=== PATIENT | female | born 1945 | race Caucasian/White ===

== ENCOUNTER → 2018-01-07 09:43 | Outpatient (REF) | payer MEDICARE, BC, SELFPAY ==
[2018-01-07 19:14] LABS: Anion Gap 10.8 mmol/L (3-11); BUN 12 mg/dL (7-18); CO2 27.2 mmol/L (21.0-32.0); Calcium 9.1 mg/dL (8.5-10.1); Chloride 103 mmol/L (98-107); Glucose 89 mg/dL (70-100); Potassium 4.3 mmol/L (3.5-5.1); Sodium 141 mmol/L (136-145)
== END ==
LOC: NCHCN 09:43
PROVIDERS: PCP Nurse Practitioner Adult Health; Visit Provider Physician Assistant Medical
DX: R63.4 Abnormal weight loss (principal); K52.9 Noninfective gastroenteritis and colitis, unspecified
CPT/HCPCS: 80048

== ENCOUNTER → 2018-01-12 00:57 | Outpatient (CLI) | payer MEDICARE, BC, SELFPAY ==
--- NOTE | 2018-01-12 12:07 | DI.RPTCT_ITS ---
SYMPTOM/DIAGNOSIS: ABNORMAL WEIGHT LOSS, DIARRHEA ABDOMINAL AND PELVIC CT : 01/12 CT examination of the abdomen and pelvis was performed with a bolus infusion of 100 cc Omnipaque 350 and ingestion of dilute Barium. Images obtained through the lung bases show diffuse central lobular emphysema. Abdominal aorta shows marked calcification. There is occlusion of the left common iliac artery. There is occlusion of the right common iliac artery as well with patent internal iliac artery. There is reconstitution of the superficial femoral arteries bilaterally from collateral circulation. Renal arteries appear intact bilaterally and celiac trunk and superior and inferior mesenteric arteries appear patent. Liver, spleen are normal in appearance. Pancreas is unremarkable. There appears to be cholelithiasis. No biliary dilatation seen. Adrenals and kidneys are unremarkable. No urinary tract obstruction or calcification seen. No abdominal or pelvic adenopathy seen. There is marked colonic diverticulosis without focal evidence of acute diverticulitis. Appendix appears normal. Nonspecific mild small bowel thickening noted in the left upper quadrant and duodenal wall appears somewhat thickened as well. No significant abdominal wall hernia seen. 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 2. Mild dilatation and bowel wall thickening of jejunum and duodenum, question enteritis. Please correlate clinically.
[2018-01-12] MEDS: Omnipaque 350 MG/ML 100 ML BTL IJ (12:14)
[2018-01-12] MEDS: Omnipaque 350 MG/ML 50 ML BTL PO (12:23)
[2018-01-12] MEDS: Breeza Beverage 473 ML BTL PO ×2 (12:23→12:24)
== END ==
PROVIDERS: PCP Physician Assistant Medical; Visit Provider Internal Medicine Gastroenterology
DX: R63.4 Abnormal weight loss (principal); R19.7 Diarrhea, unspecified; K57.30 Diverticulosis of large intestine without perforation or abscess without bleeding; I74.5 Embolism and thrombosis of iliac artery
CPT/HCPCS: 74177; Q9967; J3490

== ENCOUNTER 2018-02-22 11:29 | Outpatient (REF) | payer MEDICARE, BC, SELFPAY | END 2018-02-22 11:49 | LOC: LBN 11:29 | PROVIDERS: PCP Physician Assistant Medical; Visit Provider Internal Medicine Gastroenterology | DX: K52.9 Noninfective gastroenteritis and colitis, unspecified (principal) | CPT/HCPCS: 82710 ==

== ENCOUNTER 2018-07-06 10:29 | Day surgery (SDC) | payer MEDICARE, BC, SELFPAY ==
[2018-07-06 10:46] VITALS: BP 138/80; PULSE 82; RESP 18; TEMP 36.6; O2SAT 97
--- NOTE | 2018-07-06 11:10 | ED.GENADUL_ITS ---
Discharge Plan Disposition Patient Disposition: OTHER Condition: Stable Discharge Details Chief Complaint: Orthopedic Clinical Impression: Colles' fracture of left radius Attending Provider: Alex Mendiola Primary Care Provider: Conor Campos ED Provider: Raquel Garza Medical Decision Making 73-year-old female who presents with left wrist pain after slip and fall on ice onto outstretched hand. There is a dorsal deformity noted overlying radius of left wrist, bony deformity likely consistent with dorsal displacement and fracture of radius. Neurovascularly intact. Patient drove herself here and states she cannot get a ride home yet. Will give a dose of Motrin, Tylenol and sent for left wrist x-ray. 1210 --x-ray notes distal radius fracture consistent with Colles' fracture. X-ray results discussed with Dr. Mendiola and he will take patient to day surgery for local block and closed reduction. Will place splint. Medical Records Medical records reviewed: Yes I reviewed the patient's medical records. Imaging Data Radiologic Study: Radiologist's impression: LEFT WRIST: There is a comminuted, intra-articular fracture of the distal radius. A component of the fracture extends transversely through the distal radial metaphysis. There is dorsal angulation. There is an intra-articular component seen dorsally which shows some separation at the articular surface. The ulnar styloid is fractured. The carpal region shows degenerative changes, greatest of the first carpal metacarpal joint. IMPRESSION: Comminuted, intra-articular fracture of the distal radius and ulnar styloid fracture. HPI General Mode of arrival: ambulatory . Date/Time Provider Initiated Documentation: 07/06/18 11:03 . Limitations to Documentation: no limitations . Information obtained by: patient . HPI Narrative: Patient is a 73-year-old female presents with left wrist pain after slip and fall on ice onto left outstretched hand. She states she thinks she hit her hip as well but denies any hip pain. She denies head injury, shoulder or elbow pain. Patient has not taken anything for pain. Patient states she lives alone, her 1 year ago. Patient is concerned about getting her groceries in the house. Patient states she is right-handed. Related Data Home Medications Medication Instructions Recorded Confirmed aspirin [Aspirin Low Dose] 81 mg PO DAILY 07/06/18 07/06/18 diazepam 2.5 mg PO QHS PRN 07/06/18 07/06/18 diazepam [Valium] 2.5 mg PO HS PRN 07/06/18 07/06/18 escitalopram oxalate 5 mg PO DAILY 07/06/18 07/06/18 lisinopril 2.5 mg PO DAILY 07/06/18 07/06/18 Allergies Allergy/AdvReac Type Severity Reaction Status Date / Time tetracycline Allergy Unverified 07/06/18 13:10 General Stated Complaint: Orthopedic SANDRA: 3 Review of Systems Review of Systems All systems reviewed & are unremarkable except as noted in HPI and below PFSH Medical History Anxiety (Chronic) Depression (Chronic) HTN (hypertension) (Chronic) Surgical History History of hysterectomy (Chronic) Social History Smoking/Tobacco Use Status: Current every day alcohol intake: never substance use type: does not use Exam Const General: cooperative, healthy appearing and no acute distress HENMT Head: normal to inspection Mouth: oral mucosae normal Eyes General: appearance normal, both eyes and all related structures Neck Neck: normal visual inspection Resp Effort & Inspection: normal respiratory effort and able to speak in complete sentences Cardio Rate: regular rate Skin General skin exam: no rashes or lesions noted Neuro General: alert, awake and oriented x3 Motor: muscle tone normal throughout Extrem Left upper extremity: normal capillary refill, wrist Details: tenderness Location: of the distal radius, swelling Location: of the dorsal wrist, abnormal ROM Details: held in an abnormal fashion Details: in ADduction, pain with active ROM and pain with passive ROM, deformity (dorsal, c/w colle's fracture overlying radius), normal vascular exam, radial pulse present and ulnar pulse present and hand Details: normal to inspection and no swelling; no tenderness and no ecchymosis Psych Appearance: grossly normal Affect: normal affect Course Vital Signs Temperature 97.9 F 07/06/18 10:46 Pulse 82 07/06/18 10:46 Respiratory Rate 18 07/06/18 10:46 Blood Pressure 138/80 07/06/18 10:46 Pulse Oximetry 97 07/06/18 10:46 Temperature 97.9 F 07/06/18 10:46 Temperature Source Temporal Artery Scan 07/06/18 10:46 Pulse 82 07/06/18 10:46 Respiratory Rate 18 07/06/18 10:46 Respiratory Effort Non-Labored 07/06/18 10:46 Blood Pressure 138/80 07/06/18 10:46 Blood Pressure Position Sitting 07/06/18 10:46 Pulse Oximetry 97 07/06/18 10:46 Pain Level 9 07/06/18 10:46
[2018-07-06] MEDS: Acetaminophen 325 MG TAB 650 MG PO (11:42)
[2018-07-06] MEDS: Ibuprofen 600 MG TAB PO (11:43)
--- NOTE | 2018-07-06 12:01 | DI.RAD_ITS ---
SYMPTOM/DIAGNOSIS: S/P FALL ON CE, PAIN, ? FX LEFT WRIST: There is a comminuted, intra-articular fracture of the distal radius. A component of the fracture extends transversely through the distal radial metaphysis. There is dorsal angulation. There is an intra-articular component seen dorsally which shows some separation at the articular surface. The ulnar styloid is fractured. The carpal region shows degenerative changes, greatest of the first carpal metacarpal joint. IMPRESSION: Comminuted, intra-articular fracture of the distal radius and ulnar styloid fracture.
[2018-07-06 13:15] VITALS: BP 138/80; PULSE 82; RESP 18; TEMP 36.6; O2SAT 97
[2018-07-06 13:17] VITALS: BP 117/80; PULSE 72; RESP 18; TEMP 36.3; O2SAT 96
--- NOTE | 2018-07-06 13:21 | DI.RAD_ITS ---
SYMPTOMS/DIAGNOSIS: LEFT WRIST FRACTURE C-ARM FLUOROSCOPY OF THE LEFT WRIST: Fluoroscopy Time: 0.05 sec Fluoroscopy was provided for Dr. Mendiola. Hard copy images show improvement in the alignment of the comminuted intraarticular fracture of the distal radius. A cast has been placed.
--- NOTE | 2018-07-06 13:48 | PDOC.ERCMPRO ---
Care Management Progress Note 07/05-Met with Cheri. [place] [address] Cheri stated that she fell today, in the dogs area, and has a fractured left wrist. Cheri stated that she drove herself to the hospital. She is worried about her dogs food. Cheri called the feed exchange and they are bringing a bag of dog food plus a case of canned dog food to the hospital and putting it in her car. Discussed with Cheri how she was going to get the dogs food in the house. Cheri called her friend Lashonda Avalos who will make sure that someone will be at the house when she gets home to bring in dog food. Cheri does have a son that lives in [facility] but she does not want to tell them till she gets home. Dr. Mendiola came in and met with Cheri. He is going to set and cast her arm. Dr. Mendiola has told Cheri that she can drive home. Cheri is a little sad today. It will be a year on July 13 that her has past. Discussed updating her demographics as her is still listed. Cheri would like to add her son Jamil Solares, [facility], [phone]. Called [employer] and spoke with Jan who will update demographics. Cheri has this CM's contact information if further assistance is needed.
[2018-07-06] MEDS: Bupivacaine 0.5% Pres-Free 30 ML VIAL (14:16)
--- NOTE | 2018-07-06 14:38 | W.PM.DSUDISC ---
Discharge Plan Disposition Patient Disposition: HOME Condition: Stable Discharge Details Chief Complaint: Orthopedic Clinical Impression: Colles' fracture of left radius Reason For Visit: closed reduction fx distal radius and ulna Attending Provider: Alex Mendiola Primary Care Provider: Conor Campos ED Provider: Raquel Garza Home Meds and New Rx's Prescriptions: New hydrocodone-acetaminophen 5-325 mg tablet 1 tab PO Q6H PRN (Reason: pain) Qty: 14 RF: 0 Continued venlafaxine [Effexor XR] 37.5 mg Capsule,Extended Release 24hr 37.5 mg PO DAILY RF: 0 aspirin [Aspir-81] 81 mg Tablet,Delayed Release (Dr/Ec) 81 mg PO DAILY RF: 0 diazepam [Valium] 2 mg Tablet 2 mg PO HS RF: 0 lisinopril 5 mg Tablet 5 mg PO DAILY RF: 0 Probiotic 3 billion cell Capsule 3,000 mmu cells PO DAILY RF: 0 Vassar-3 Fish Oil 300-1,000 mg Capsule 1,000 mg PO DAILY RF: 0 Discharge Instructions Additional Instructions: Cast care instruction sheet. Elevate L hand above heart level as much as possible for next 48 hours. Bend and straighten fingers and thumb of L hand 10 times/hour when awake. Use tylenol or ibuprofen for mild pain. Use the hydrocodone for pain that is not relieved by tylenol or ibuprofen. Follow up in 's office in one week. Referrals: Alex Mendiola MD [ [facility] STAFF PHYSICIAN] - (f/u in one week) Equipment/Supplies: Cast Activity:: Activity as Tolerated Remove Dressings/Wound Care:: Do Not Remove Shower/Bathe:: Cover Diet:: As Tolerated Discharge Orders Discharge Orders: Discharge Order (Routine); Ordered 07/06/18 Ordered By: Alex Mendiola
--- NOTE | 2018-07-06 14:41 | PDOC.DSDIS_ITS ---
Discharge Plan Disposition Patient Disposition: HOME Condition: Stable Discharge Details Chief Complaint: Orthopedic Clinical Impression: Colles' fracture of left radius Reason For Visit: closed reduction fx distal radius and ulna Attending Provider: Alex Mendiola Primary Care Provider: Conor Campos ED Provider: Raquel Garza Home Meds and New Rx's Prescriptions: New hydrocodone-acetaminophen 5-325 mg tablet 1 tab PO Q6H PRN (Reason: pain) Qty: 14 RF: 0 Continued venlafaxine [Effexor XR] 37.5 mg Capsule,Extended Release 24hr 37.5 mg PO DAILY RF: 0 aspirin [Aspir-81] 81 mg Tablet,Delayed Release (Dr/Ec) 81 mg PO DAILY RF: 0 diazepam [Valium] 2 mg Tablet 2 mg PO HS RF: 0 lisinopril 5 mg Tablet 5 mg PO DAILY RF: 0 Probiotic 3 billion cell Capsule 3,000 mmu cells PO DAILY RF: 0 Marquez-3 Fish Oil 300-1,000 mg Capsule 1,000 mg PO DAILY RF: 0 Discharge Instructions Additional Instructions: Cast care instruction sheet. Elevate L hand above heart level as much as possible for next 48 hours. Bend and straighten fingers and thumb of L hand 10 times/hour when awake. Use tylenol or ibuprofen for mild pain. Use the hydrocodone for pain that is not relieved by tylenol or ibuprofen. Follow up in 's office in one week. Referrals: Alex Mendiola MD [ [facility] STAFF PHYSICIAN] - (f/u in one week) Equipment/Supplies: Cast Activity:: Activity as Tolerated Remove Dressings/Wound Care:: Do Not Remove Shower/Bathe:: Cover Diet:: As Tolerated Discharge Orders Discharge Orders: Discharge Order (Routine); Ordered 07/06/18 Ordered By: Alex Mendiola
--- NOTE | 2018-07-06 19:50 | ROE_ITS ---
DATE OF PROCEDURE: July 06, 2018 PREOPERATIVE DIAGNOSIS: Displaced fracture distal radius and ulnar styloid on the left. POSTOPERATIVE DIAGNOSIS: Same. PROCEDURE: Closed reduction of a displaced fracture of the distal radius and ulnar styloid on the le ft, application of short arm fiberglass cast. SURGEON: Alex Mendiola M.D. ANESTHESIA: IV regional - single blood pressure cuff technique performed by me, supplemented by a he matoma block. INDICATIONS: This is a 73-year-old white female who slipped while walking her dog earlier today. Luis Alfredo serrano presented to the Emergency Room with a visible deformity, classic silver fork of the distal radius. She was neurovascularly intact in the Emergency Room. I was consulted for further care. She had o nly a mild amount of radial shortening on the AP view, but had significant apex dorsal angulation of the distal radius on the lateral view measuring at least 40 degrees. Closed manipulated reduction wa s recommended as optimum treatment to correct the dorsal tilt and help restore radial length to the f racture. The risks and complications of the procedure were explained to the patient in detail preope ratively. PROCEDURE: The patient was taken to the Operating Room on 07/06/18. An IV was started in the dorsum o f her left hand. A proximal tourniquet was applied. The left upper extremity was exsanguinated by zach levyunior for two minutes and then the proximal tourniquet was inflated to 225 mmHg. I then injected through the IV into her left upper extremity 30 cc of 0.5% Xylocaine solution. The IV was then remov ed. I then injected 10 cc of 0.5% Marcaine with epinephrine solution into the fracture site to perfo rm a hematoma block. The puncture wounds were dressed with Band-Aids. The left hand was then suspen ded by finger traps from an IV pole. Countertraction of 10 pounds was applied. I then performed a c losed manipulated reduction of the distal radial fracture. The reduction was checked using the mini C-arm image intensifier. Radial length was restored on the AP view to essentially anatomic and the d orsal tilt of the radius was corrected to 0 degrees on the lateral view. I then captured the reducti on with a well-molded short arm fiberglass cast. The left arm was then taken out of finger traps and the traction weights were removed. Final images in the cast were then performed with the mini C-arm . These confirmed that a near anatomic reduction had been obtained. The patient tolerated the proce dure well. Her IV regional anesthesia was reversed without complications. She was discharged to the Day Surgery Unit in good condition. The patient was discharged home from the Day Surgery Unit with instructions to elevate her left hand above heart level as much as possible for the next 48 hours. She is encouraged to bend and straighte n her fingers and thumb of her left hand 10 times an hour while awake to prevent stiffness and swelli ng. She was given a cast sheet with instructions on care and complications of the cast. She underst ands that if she has symptoms of pain and swelling the cast will need to be split. She can call the office tomorrow or the day after with any problems. She is given a prescription for pain of hydrocod one/APAP 5 mg/325 mg, 1 tablet every 6 hours as needed for pain that is not relieved by Tylenol or ib uprofen. She will follow up in my office in one week for x-rays to confirm that the reduction is titi ng maintained.
== END 2018-07-06 15:20 | disposition home or self-care (01) ==
LOC: ER 12:44 → DSU 12:55 → SUR 12:57
PROVIDERS: Emergency Provider Physician Assistant; PCP Physician Assistant Medical; Visit Provider Orthopaedic Surgery
PROC: (CPT 25605; principal; 2018-07-06 14:00)
DX: S52.592A Other fractures of lower end of left radius, initial encounter for closed fracture (principal); S52.612A Displaced fracture of left ulna styloid process, initial encounter for closed fracture; W00.0XXA Fall on same level due to ice and snow, initial encounter; Y93.K1 Activity, walking an animal
CPT/HCPCS: 25605; 99285; 73100; 73110; 99284

== ENCOUNTER 2018-07-14 12:16 | Outpatient (CLI) | payer MEDICARE, BC, SELFPAY ==
--- NOTE | 2018-07-14 11:51 | DI.RAD_ITS ---
SYMPTOMS/DIAGNOSIS: FOLLOW UP LEFT WRIST: Two views were obtained and show previously described fracture of the distal radius with no gross interval change in alignment in comparison with images obtained 07/06/18. Ulnar styloid fracture again noted as well.
== END 2018-07-14 12:36 ==
PROVIDERS: PCP Physician Assistant Medical; Referring Provider Physician Assistant Medical; Visit Provider Orthopaedic Surgery
DX: S52.592D Other fractures of lower end of left radius, subsequent encounter for closed fracture with routine healing (principal); S52.612D Displaced fracture of left ulna styloid process, subsequent encounter for closed fracture with routine healing; X58.XXXD Exposure to other specified factors, subsequent encounter; I10 Essential (primary) hypertension
CPT/HCPCS: 73100

== ENCOUNTER 2018-07-20 11:07 | Outpatient (CLI) | payer MEDICARE, BC, SELFPAY ==
--- NOTE | 2018-07-20 11:03 | DI.RAD_ITS ---
SYMPTOM/DIAGNOSIS: F/U CLOSED REDUCTION LEFT WRIST: Two views. Comparison is made with 07/14/18. The patient's wrist is in a cast which does obscure the underlying bony detail. There has been no change in alignment of the fracture of the distal left radius. The ulnar styloid process fracture is also visualized and is unchanged.
== END 2018-07-20 11:27 ==
PROVIDERS: PCP Physician Assistant Medical; Referring Provider Physician Assistant Medical; Visit Provider Orthopaedic Surgery
DX: S52.612D Displaced fracture of left ulna styloid process, subsequent encounter for closed fracture with routine healing (principal); I10 Essential (primary) hypertension; X58.XXXD Exposure to other specified factors, subsequent encounter
CPT/HCPCS: 73100

== ENCOUNTER 2018-08-10 10:04 | Outpatient (CLI) | payer MEDICARE, BC, SELFPAY ==
--- NOTE | 2018-08-10 09:53 | DI.RAD_ITS ---
SYMPTOMS/DIAGNOSIS: F/U FX LEFT WRIST: AP and lateral images obtained through fiberglass demonstrate no interval change in the status of the distal radial and ulnar styloid fracture.
== END 2018-08-10 10:24 ==
PROVIDERS: PCP Physician Assistant Medical; Referring Provider Physician Assistant Medical; Visit Provider Orthopaedic Surgery
DX: S52.592D Other fractures of lower end of left radius, subsequent encounter for closed fracture with routine healing (principal); S52.612D Displaced fracture of left ulna styloid process, subsequent encounter for closed fracture with routine healing; I10 Essential (primary) hypertension; W19.XXXD Unspecified fall, subsequent encounter
CPT/HCPCS: 73100; L3908

== ENCOUNTER 2018-12-05 14:16 | Outpatient (REF) | payer MEDICARE, BC, SELFPAY ==
[2018-12-05 22:48] LABS: Anion Gap 12.1 mmol/L (3-11); BUN 11 mg/dL (7-18); CO2 24.9 mmol/L (21.0-32.0); CREATININE 0.64 mg/dL (0.55-1.02); Calcium 9.7 mg/dL (8.5-10.1); Chloride 105 mmol/L (98-107); Glucose 89 mg/dL (70-100); Potassium 4.5 mmol/L (3.5-5.1); Sodium 142 mmol/L (136-145)
== END 2018-12-05 14:36 ==
LOC: NCHCN 14:16
PROVIDERS: PCP Physician Assistant Medical; Visit Provider Physician Assistant Medical
DX: I10 Essential (primary) hypertension (principal)
CPT/HCPCS: 80048

== ENCOUNTER 2019-03-20 01:11 | Outpatient (CLI) | payer MEDICARE, BC, SELFPAY ==
--- NOTE | 2019-03-20 10:52 | DI.RAD_ITS ---
EXAM: XR CERVICAL SPINE COMP 4-5V INDICATION: NECK PAIN M54.2. COMPARISON: No exams were available for comparison TECHNIQUE: 2D digital imaging was performed. FINDINGS: The vertebral bodies are intact. The disc spaces are intact. No evidence of spinal stenosis. There a re moderate degenerative changes involving the facet joints. The posterior elements are well maintain ed and the odontoid is closely applied to the anterior arch of C1. Prevertebral soft tissues are unr emarkable. The patient is edentulous. IMPRESSION: Mild degenerative changes involving the cervical spine are noted. There is no evidence a fracture or subluxation.
== END 2019-03-20 01:31 ==
PROVIDERS: PCP Physician Assistant Medical; Visit Provider Physician Assistant Medical
DX: M54.2 Cervicalgia (principal); M47.812 Spondylosis without myelopathy or radiculopathy, cervical region
CPT/HCPCS: 72050

== ENCOUNTER 2019-12-15 21:54 | Outpatient (REF) | payer MEDICARE, BC, SELFPAY ==
[2019-12-15 20:24] LABS: Abs Immature Grans 0.07 k/cumm (0.0-0.09); Absolute Basophil Count 0.02 k/cumm (0.0-0.2); Absolute Eosinophil Count 0.03 k/cumm (0.0-0.7); Absolute Lymphocyte Count 2.23 k/cumm (1.2-3.4); Absolute Monocyte Count 0.53 k/cumm (0.11-0.7); Absolute Neutrophil Count 3.48 k/cumm (1.2-6.7); Basophils % 0.3; Eosinophils % 0.5; HGB 14.7 g/dL (12.0-15.5); Immature Grans % 1.1 %; Lymphocytes % 35.1; Mean Corp. HGB Concentration 33.4 g/dL (32.0-36.0); Mean Corpuscular Hemoglobin 31.5 pg (27.0-33.0); Mean Corpuscular Volume 94.4 fL (80-95); Monocytes % 8.3; Neutrophils % 54.7; Platelet Count 246 x1000/uL (130-400); RBC 4.66 m/cumm (4.00-5.20); RBC Distribution Width 14.6 % (11.7-14.6); White Blood Cell Count 6.36 k/cumm (4.4-10.8)
[2019-12-15 20:37] LABS: ALT 17 U/L (14-59); AST 16 U/L (15-37); Albumin 3.7 g/dL (3.4-5.0); Alkaline Phosphatase 89 U/L (46-116); Anion Gap 8.9 mmol/L (3-11); BUN 17 mg/dL (7-18); CO2 26.1 mmol/L (21.0-32.0); CREATININE 0.64 mg/dL (0.55-1.02); Calcium 9.4 mg/dL (8.5-10.1); Chloride 106 mmol/L (98-107); Glucose 64 mg/dL (74-106); Potassium 4.2 mmol/L (3.5-5.1); Sodium 141 mmol/L (136-145); Total Protein 6.9 g/dL (6.4-8.2)
[2019-12-15 21:02] LABS: Bilirubin, Total 0.3 mg/dL (0.2-1.0)
== END 2019-12-15 22:14 ==
LOC: NCHCN 21:54
PROVIDERS: PCP Physician Assistant Medical; Visit Provider Physician Assistant Medical
DX: I10 Essential (primary) hypertension (principal)
CPT/HCPCS: 80053; 85025

== ENCOUNTER 2020-12-23 14:36 | Outpatient (REF) | payer MEDICARE, BC, SELFPAY ==
[2020-12-23 19:31] LABS: Absolute Basophil Count 0.06 10^3/uL (0.0-0.2); Absolute Eosinophil Count 0.07 10^3/uL (0.0-0.7); Absolute Lymphocyte Count 3.31 10^3/uL (1.2-3.4); Absolute Neutrophil Count 4.01 10^3/uL (1.2-6.7); Basophils % 0.7; Eosinophils % 0.8; HCT 46.2 % (36.0-46.0); HGB 15.3 g/dL (11.2-15.7); Immature Grans % 1.2; Lymphocytes % 40.1; MCH 30.9 pg (27.0-33.0); MCHC 33.1 % (32.0-36.0); MCV 93.3 fL (80-95); MPV 9.6 fL (8.0-11.0); Monocytes % 8.5; Neutrophils % 48.7; Nucleated RBC 0 %; Platelet Count 243 10^3/uL (130-400); RBC 4.95 10^6/uL (3.93-5.22); RDW 14.1 % (11.7-14.6); RDW-SD 48.4 fL; WBC 8.25 10^3/uL (4.4-10.8)
[2020-12-23 19:32] LABS: ALT 17 U/L (14-59); AST 16 U/L (15-37); Albumin 3.6 g/dL (3.4-5.0); Alkaline Phosphatase 82 U/L (46-116); Anion Gap 9.8 mmol/L (3-11); BUN 15 mg/dL (7-18); Bilirubin, Total 0.3 mg/dL (0.2-1.0); CO2 25.2 mmol/L (21.0-32.0); CREATININE 0.7 mg/dL (0.55-1.02); Calcium 9.4 mg/dL (8.5-10.1); Chloride 107 mmol/L (98-107); Glucose 99 mg/dL (74-106); Potassium 3.9 mmol/L (3.5-5.1); Sodium 142 mmol/L (136-145); Total Protein 6.7 g/dL (6.4-8.2)
== END 2020-12-23 14:37 | disposition home or self-care (01) ==
LOC: NCHCN 14:36
PROVIDERS: PCP Physician Assistant Medical; Visit Provider Physician Assistant Medical
DX: R42 Dizziness and giddiness (principal)
CPT/HCPCS: 80053; 85025

== ENCOUNTER 2022-09-11 12:07 | Outpatient (REF) | payer MEDICARE, SELFPAY ==
[2022-09-11 15:22] LABS: Abs Immature Grans 0.05 10^3/uL (0.0-0.06); Absolute Basophil Count 0.06 10^3/uL (0.0-0.2); Absolute Eosinophil Count 0.04 10^3/uL (0.0-0.7); Absolute Lymphocyte Count 2.83 10^3/uL (1.2-3.4); Absolute Monocyte Count 0.53 10^3/uL (0.1-0.8); Absolute Neutrophil Count 3.08 10^3/uL (1.2-6.7); Basophils % 0.9; Eosinophils % 0.6; HCT 44.4 % (36.0-46.0); Immature Grans % 0.8; Lymphocytes % 42.9; MCH 31.4 pg (27.0-33.0); MCHC 33.8 % (32.0-36.0); MCV 93 fL (80-95); MPV 9.5 fL (8.0-11.0); Neutrophils % 46.8; Platelet Count 220 10^3/uL (130-400); RBC 4.77 10^6/uL (3.93-5.22); RDW 13.9 % (11.7-14.6); RDW-SD 48.2 fL; WBC 6.59 10^3/uL (4.4-10.8)
[2022-09-11 15:52] LABS: ALT 18 U/L (14-59); AST 18 U/L (15-37); Albumin 3.6 g/dL (3.4-5.0); Alkaline Phosphatase 91 U/L (46-116); Anion Gap 7.1 mmol/L (3-11); BUN 16 mg/dL (7-18); Bilirubin, Total 0.3 mg/dL (0.2-1.0); CO2 26.9 mmol/L (21.0-32.0); CREATININE 0.8 mg/dL (0.55-1.02); Calcium 9.8 mg/dL (8.5-10.1); Chloride 108 mmol/L (98-107); Estimated GFR 75.37 (mL/min/1.73m2); Glucose 99 mg/dL (74-106); Potassium 4.1 mmol/L (3.5-5.1); Sodium 142 mmol/L (136-145); Total Protein 7.5 g/dL (6.4-8.2)
== END 2022-09-11 12:08 | disposition home or self-care (01) ==
LOC: NCHCN 12:07
PROVIDERS: PCP Physician Assistant Medical; Visit Provider Physician Assistant Medical
DX: R42 Dizziness and giddiness (principal)
CPT/HCPCS: 80053; 85025

== ENCOUNTER → 2023-08-31 14:31 | Outpatient (CLI) | payer MEDICARE, SELFPAY ==
--- NOTE | 2023-08-31 | DI.RAD_ITS ---
Exam(s) XR LUMBAR SPINE COMPLETE EXAM: XR LUMBAR SPINE COMPLETE CLINICAL HISTORY: M54.50 Low back pain,unspecified. TECHNIQUE: 2D digital imaging was performed. COMPARISON: CT ABD PELVIS WITH CONTRAST from 11/06/2009 FINDINGS: Five views. There is age-related osteopenia. No evidence of compression fracture nor prominent listhesis. Mild scoliosis noted convex left. There is mild disc space narrowing at L3-4 level. Other disc spaces ex hibit normal height. There is facet arthropathy at the lower 2 levels. The sacroiliac joints appear unremarkable. No osseous lesions. IMPRESSION: Mild disc space narrowing at L3-4 level. Facet arthropathy, most evident at L5-S1. DATA REPOSITORY: RADIATION DOSE DELIVERED:
== END ==
PROVIDERS: PCP Physician Assistant Medical; Visit Provider Physician Assistant Medical
DX: M54.59 Other low back pain (principal); M51.37 Other intervertebral disc degeneration, lumbosacral region; M47.817 Spondylosis without myelopathy or radiculopathy, lumbosacral region; M85.88 Other specified disorders of bone density and structure, other site
CPT/HCPCS: 72110

== ENCOUNTER 2023-08-31 15:42 | Outpatient (REF) | payer MEDICARE, SELFPAY | END 2023-08-31 15:43 | disposition home or self-care (01) | LOC: NCHCN 15:42 | PROVIDERS: PCP Physician Assistant Medical; Visit Provider Physician Assistant Medical | DX: R30.0 Dysuria (principal) | CPT/HCPCS: 87077; 87086; 87186 ==

== ENCOUNTER 2024-02-08 01:05 | Outpatient (CLI) | payer MEDICARE, SELFPAY ==
--- NOTE | 2024-02-08 14:59 | DI.US_ITS ---
Exam(s) US CAROTID EXAM: US CAROTID CLINICAL HISTORY: Lt carotid artery occlusion and stenosis, I65.22. TECHNIQUE: Ultrasound carotids performed using grayscale, color-flow, and spectral Doppler imaging. COMPARISON: No exams were available for comparison FINDINGS: RIGHT CAROTID ARTERY: Plaque: Minimal calcific plaque at the proximal internal and external carotid artery as well as commo n carotid bulb.. Velocity elevation: None. LEFT CAROTID ARTERY: Plaque: Moderate focus of calcific plaque at the proximal internal carotid artery. Mild plaque at th e common carotid bulb and proximal external carotid artery.. Velocity elevation: None. VERTEBRAL ARTERIES: Antegrade flow. Measurements: R Bulb: 77.5cm/s PS / 29.6cm/s ED R CCA: 87.8cm/s PS / 18cm/s ED R ECA: 76.2cm/s PS / 18cm/s ED R ICA Prox: 110.7cm/s PS / 35.9cm/s ED R ICA Mid: 103.9cm/s PS / 38.1cm/s ED R ICA Distal: 65.5cm/s PS /27.2cm/s ED R Vert: 62.4cm/s PS / 25.6cm/s ED R SVR: 1.3 R DVR: 2 L Bulb: 78.5cm/s PS / 29.7cm/s ED L CCA: 63cm/s PS / 24.9cm/s ED L ECA: 110.8cm/s PS / 14.4cm/s ED L ICA Prox: 158.4cm/s PS / 67.1cm/s ED L ICA Mid: 123.6cm/s PS / 41.1cm/s ED L ICA Distal: 85.9cm/s PS / 31.4cm/s ED L Vert: 34.7cm/s PS / 14cm/s ED L SVR: 2.5 L DVR: 2.7 IMPRESSION: Approximate 50 to 69 percent stenosis of proximal left internal carotid artery. No significant right internal carotid artery stenosis. Criteria for Carotid Stenosis: Normal: ICA PSV <125 cm/s no plaque or intimal thickening is visible. <50% stenosis: ICA PSV <125 cm/s and plaque or intimal thickening is visible. 50-69% stenosis: ICA PSV is 125-250 cm/s and plaque is visible. >70% stenosis to near occlusion: ICA PSV >250 cm/s with visible plaque and luminal narrowing. DATA REPOSITORY:
== END 2024-02-08 01:25 ==
LOC: DI 01:05
PROVIDERS: PCP Physician Assistant Medical; Visit Provider Physician Assistant Medical
DX: I65.22 Occlusion and stenosis of left carotid artery (principal)
CPT/HCPCS: 93880

== ENCOUNTER 2024-12-27 15:19 | Outpatient (REF) | payer MEDICARE, SELFPAY ==
[2024-12-27 21:31] LABS: ALT 18 U/L (14-59); AST 22 U/L (15-37); Albumin 3.6 g/dL (3.4-5.0); Alkaline Phosphatase 82 U/L (46-116); Anion Gap 6.5 mmol/L (3-11); BUN 16 mg/dL (7-18); Bilirubin, Total 0.2 mg/dL (0.2-1.0); CO2 28.5 mmol/L (21.0-32.0); Calcium 9.4 mg/dL (8.5-10.1); Calculated LDL 115 mg/dL (<100); Chloride 106 mmol/L (98-107); Cholesterol 227 mg/dL (<200); Estimated GFR 90.68 (mL/min/1.73m2); Glucose 94 mg/dL (74-106); HDL Cholesterol 94 mg/dL (>or=50); Potassium 4.3 mmol/L (3.5-5.1); Sodium 141 mmol/L (136-145); Total Protein 7.2 g/dL (6.4-8.2); Triglyceride 91 mg/dL (<150)
[2024-12-27 21:48] LABS: Vitamin D 25 Total 137 ng/mL (30-100)
== END 2024-12-27 15:20 | disposition home or self-care (01) ==
LOC: NCHCN 15:19
PROVIDERS: PCP Physician Assistant Medical; Visit Provider Physician Assistant Medical
DX: E78.5 Hyperlipidemia, unspecified (principal)
CPT/HCPCS: 80053; 80061; 82306

== ENCOUNTER 2025-01-18 08:13 | Outpatient (CLI) | payer MEDICARE, SELFPAY ==
--- NOTE | 2025-01-18 12:42 | DI.RAD_ITS ---
Exam(s) XR CERVICAL SPINE COMP 4-5V EXAM: XR CERVICAL SPINE COMP 4-5V CLINICAL HISTORY: NECK PAIN, M54.2, CERVICALGIA. TECHNIQUE: 2D digital imaging was performed. Five views were performed. COMPARISON: CR XR CERVICAL SPINE COMP 4-5V from 03/20/2019 FINDINGS: Exam is somewhat limited by the patient's kyphosis. Patient was on able to lift the chin. BONES: No fracture or destructive lesion. Vertebral bodies are unremarkable. There are facet degenerative changes throughout. Noted narrowing. DISKS: Intervertebral disc spaces are maintained. ALIGNMENT: Cervical spinal alignment is within normal limits. The odontoid and atlantoaxial articulations are normal. SOFT TISSUE: Normal. The lung apices are clear. IMPRESSION: Limited exam due to patient kyphosis. No significant disc space narrowing. Facet degenerative changes are present. No definite neural foraminal narrowing. DATA REPOSITORY: RADIATION DOSE DELIVERED:
--- NOTE | 2025-01-18 12:43 | DI.RAD_ITS ---
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 TECHNIQUE: 2D digital imaging was performed. Three views. CR XR LUMBAR SPINE COMPLETE from 08/31/2023 FINDINGS: BONES: There are compression fractures, [id number] of the lower thoracic levels which are not optimally profiled due to scoliosis. The vertebral bodies and posterior elements are unremarkable. ALIGNMENT: Accentuated thoracic kyphosis. Thoracolumbar scoliosis. DISKS: Small endplate osteophytes. Narrowing of the anterior disc spaces SOFT TISSUE: Visualized lungs are clear. Mild interstitial changes. IMPRESSION: [id number] lower thoracic compression fractures. DATA REPOSITORY: RADIATION DOSE DELIVERED:
== END 2025-01-18 08:33 ==
LOC: DI 08:13
PROVIDERS: PCP Physician Assistant Medical; Visit Provider Physician Assistant Medical
DX: S22.060A Wedge compression fracture of T7-T8 vertebra, initial encounter for closed fracture (principal); X58.XXXA Exposure to other specified factors, initial encounter
CPT/HCPCS: 72050; 72072

== ENCOUNTER 2025-03-01 04:16 | Outpatient (CLI) | payer MEDICARE, SELFPAY ==
--- NOTE | 2025-03-01 | DI.DEXA_ITS ---
Exam(s) XR DEXA BONE DENSITY W/WO SANDY EXAM: XR DEXA BONE DENSITY W/WO SANDY CLINICAL HISTORY: ASYMPTOMATIC MENOPAUSAL STATE Z78.0 TECHNIQUE: UXFLIP C densitometer analysis of left hip, lumbar spine and right forearm. Lateral survey image of the thoracic and lumbar spine. COMPARISON: CR XR LUMBAR SPINE COMPLETE from 08/31/2023 CR XR CERVICAL SPINE COMP 4-5V from 01/18/2025 CR XR THORACIC SPINE COMPLETE from 01/18/2025 FINDINGS: Lateral view of the thoracic and lumbar spine shows mild anterior wedging of the T12 vertebral body. The findings appeared more pronounced on the previous T- spine plain films. There is a mild levoscoliosis at the thoracolumbar junction. The vertebral bodies are better aligned on today's examination. There is accentuation of the normal thoracic kyphosis secondary to degenerative changes. Bone mineral density measurements of the lumbar spine correspond to a total T- score of -3.7, in the osteoporotic range. Bone mineral density measurements of the left hip correspond to a total T-score of -3.7. The femoral neck T-score is -3.7, in the osteoporotic range. Theright forearm bone mineral density measurements correspond to a T-score of the distal 3rd of -3.7, in the osteoporotic range. IMPRESSION: Osteoporosis of the spine, hip and forearm.
== END 2025-03-01 04:36 ==
PROVIDERS: PCP Physician Assistant Medical; Visit Provider Physician Assistant Medical
DX: Z13.820 Encounter for screening for osteoporosis (principal); Z78.0 Asymptomatic menopausal state
CPT/HCPCS: 77080